=== PATIENT | female | born 1950 | race Caucasian/White ===

== ENCOUNTER 2018-10-20 05:46 | Inpatient (IN) | payer MEDICARE ==
[2018-10-20] VITALS (7 sets, daily range): BP systolic 114–145; BP diastolic 67–106
[~2018-10-20] VITALS: Ht 162.6 cm; Wt 59.0 kg
[2018-10-20] MEDS ORDERED: IV NORMAL SALINE 500ML 500 ML IV ONE (06:15)
[2018-10-20] MEDS ORDERED: ASPIRIN 81 MG TAB.CHEW PO ONE (06:15)
--- NOTE | 2018-10-20 06:58 | RAD ---
Indication:Palpitation. Hx heart condition, clavicle repair TECHNIQUE:Portable AP chest X-ray COMPARISON:None FINDINGS: Heart is normal in size. Lungs are hyperinflated. Diffuse linear opacities are seen in the right midlung zone and right lower lobe. Status post ORIF of left clavicular fracture. No pneumothorax or pleural effusion. IMPRESSION: Findings of COPD with superimposed atypical/viral infection not ruled out. Electronically signed by: Clifton Feng DO (10/20/2018 6:55 AM) [facility]
[2018-10-20 06:59] LABS: BASO # 0.1 x10^3/uL (0.0-0.2); BASO % 1 % (0-3); EOS % 0 % (0-3); HEMATOCRIT 38.2 % (36.0-47.0); HEMOGLOBIN 12.9 g/dL (12.0-15.5); LYMPH # 2.4 x10^3/uL (1.0-4.8); LYMPH % 22 % (24-48); MEAN CORPUSCULAR HEMOGLOBIN 31 pg (25-35); MEAN CORPUSCULAR HGB CONC 34 g/dL (31-37); MEAN CORPUSCULAR VOLUME 90 fL (79-100); MONO # 0.9 x10^3/uL (0.0-1.1); MONO % 8 % (0-9); NEUT # 7.6 x10^3uL (1.8-7.7); NEUT % 69 % (31-73); PLATELET COUNT 290 x10^3/uL (140-400); RED BLOOD COUNT 4.23 x10^6/uL (3.50-5.40); RED CELL DISTRIBUTION WIDTH 12.8 % (11.5-14.5)
[2018-10-20] MEDS ORDERED: dilTIAZem 25 MG/5 ML VIAL IVP ONE (07:15)
[2018-10-20 07:19] LABS: ALBUMIN 3.9 g/dL (3.4-5.0); ALBUMIN/GLOBULIN RATIO 1.1 (1.0-1.7); CALCIUM 9.3 mg/dL (8.5-10.1); CREATININE 0.7 mg/dL (0.6-1.0); GFR 82.7; MAGNESIUM 1.7 mg/dL (1.8-2.4); POTASSIUM 3.4 mmol/L (3.5-5.1); TOTAL BILIRUBIN 0.3 mg/dL (0.2-1.0); TOTAL PROTEIN 7.4 g/dL (6.4-8.2)
[2018-10-20 07:19] LABS: BILIRUBIN,URINE NEG (NEG); CLARITY,URINE CLEAR; COLOR,URINE STRAW; GLUCOSE,URINE NEG (NEG); NITRITE,URINE NEG (NEG); RBC,URINE RARE /HPF (0-2); UROBILINOGEN,URINE 0.2 mg/dL (0.2 mg/dL)
[2018-10-20 07:20] LABS: BACTERIA,URINE 0 /HPF (0-FEW); SQUAMOUS EPITHELIAL CELL,UR FEW /LPF
[2018-10-20 07:21] LABS: INFLUENZA A PATIENT NEGATIVE (NEGATIVE); INFLUENZA B PATIENT NEGATIVE (NEGATIVE)
[2018-10-20] MEDS ORDERED: cefTRIAXone SODIUM 1 GM VIAL ONE (07:40)
[2018-10-20] MEDS ORDERED: IV NORMAL SALINE 50ML 50 ML ONE (07:40)
--- NOTE | 2018-10-20 07:58 | PHYS DOC ---
Past History Past Medical History: A-Fib, Pneumonia, Stroke Past Surgical History: Appendectomy, Tonsillectomy, Other Alcohol Use: Rarely Drug Use: None Adult General Chief Complaint Chief Complaint: RAPID HEART RATE HPI HPI Patient is a 68 year old female with history of atrial fibrillation who presents with complaining of palpitation. Patient complaining of sudden onset of palpitations since 419 as a constant problem without chest pain. Patient complaining of shortness of breath and generalized weakness and denies focal neuro deficit, fever and chills, nausea and vomiting. Patient states she has problems with cough and cold for one month and recently treated with prednisone and inhaler and antibiotic by her primary care physician. Patient has history of atrial fibrillation without taking anticoagulation because of history of GI bleed. Review of Systems Review of Systems Constitutional: Denies fever or chills [] Eyes: Denies change in visual acuity, redness, or eye pain [] HENT: Denies nasal congestion or sore throat [] Respiratory: Reports cough and shortness of breath [] Cardiovascular: No additional information not addressed in HPI [] GI: Denies abdominal pain, nausea, vomiting, bloody stools or diarrhea [] : Denies dysuria or hematuria [] Musculoskeletal: Denies back pain or joint pain [] Integument: Denies rash or skin lesions [] Neurologic: Denies headache, focal weakness or sensory changes [] Endocrine: Denies polyuria or polydipsia [] All other systems were reviewed and found to be within normal limits, except as documented in this note. Current Medications Current Medications Current Medications Medications (Trade) Dose Ordered Sig/Latonya Start Time Stop Time Status Last Admin Dose Admin Aspirin (Children'S Aspirin) 324 mg 1X ONCE 10/20/18 06:15 10/20/18 06:58 DC 10/20/18 06:34 324 MG Ceftriaxone Sodium 1 gm/ Sodium Chloride 50 ml @ 100 mls/hr 1X ONCE 10/20/18 07:15 10/20/18 07:44 DC 10/20/18 07:42 100 MLS/HR Ceftriaxone Sodium (Rocephin) 1 gm STK-MED ONCE 10/20/18 07:40 10/20/18 07:41 DC Diltiazem HCl (Cardizem Iv Push) 10 mg 1X ONCE 10/20/18 07:15 10/20/18 07:16 DC 10/20/18 07:35 10 MG Sodium Chloride 50 ml @ As Directed STK-MED ONCE 10/20/18 07:40 10/20/18 07:41 DC Allergies Allergies Allergies Coded Allergies Type Severity Reaction Last Updated Verified iodine Allergy Unknown 10/20/18 Yes Physical Exam Physical Exam Constitutional: Well developed, well nourished, mild distress, non-toxic appearance. [] HENT: Normocephalic, atraumatic, oropharynx moist, no oral exudates, nose normal. [] Eyes: PERRLA, EOMI, conjunctiva normal, no discharge. [] Neck: Normal range of motion, no tenderness, supple, no stridor. [] Cardiovascular: Irregularly irregular rhythm with tachycardia, no murmur [] Lungs & Thorax: Bilateral breath sounds clear to auscultation [] Abdomen: Bowel sounds normal, soft, no tenderness, no masses, no pulsatile masses. [] Skin: Warm, dry, no erythema, no rash. [] Back: No tenderness, no CVA tenderness. [] Extremities: No tenderness, no cyanosis, no clubbing, ROM intact, no edema. [] Neurologic: Alert and oriented X 3, normal motor function, normal sensory function, no focal deficits noted. [] Psychologic: Affect normal, judgement normal, mood normal. [] Current Patient Data Vital Signs Vital Signs Date Time Temp Pulse Resp B/P (MAP) Pulse Ox O2 Delivery O2 Flow Rate FiO2 10/20/18 07:35 133 136/84 10/20/18 06:27 97.5 18 94 Room Air Lab Results Laboratory Tests Test 10/20/18 06:45 10/20/18 06:47 10/20/18 06:50 White Blood Count 11.0 x10^3/uL (4.0-11.0) Red Blood Count 4.23 x10^6/uL (3.50-5.40) Hemoglobin 12.9 g/dL (12.0-15.5) Hematocrit 38.2 % (36.0-47.0) Mean Corpuscular Volume 90 fL (79-100) Mean Corpuscular Hemoglobin 31 pg (25-35) Mean Corpuscular Hemoglobin Concent 34 g/dL (31-37) Red Cell Distribution Width 12.8 % (11.5-14.5) Platelet Count 290 x10^3/uL (140-400) Neutrophils (%) (Auto) 69 % (31-73) Lymphocytes (%) (Auto) 22 % (24-48) L Monocytes (%) (Auto) 8 % (0-9) Eosinophils (%) (Auto) 0 % (0-3) Basophils (%) (Auto) 1 % (0-3) Neutrophils # (Auto) 7.6 x10^3uL (1.8-7.7) Lymphocytes # (Auto) 2.4 x10^3/uL (1.0-4.8) Monocytes # (Auto) 0.9 x10^3/uL (0.0-1.1) Eosinophils # (Auto) 0.0 x10^3/uL (0.0-0.7) Basophils # (Auto) 0.1 x10^3/uL (0.0-0.2) Prothrombin Time 9.3 SEC (9.4-11.4) L Prothrombin Time INR 0.9 (0.9-1.1) PTT 22 SEC (23-33) L D-Dimer (Eliza) 1.04 mg/L (0.00-0.50) H Sodium Level 143 mmol/L (136-145) Potassium Level 3.4 mmol/L (3.5-5.1) L Chloride Level 104 mmol/L (98-107) Carbon Dioxide Level 27 mmol/L (21-32) Anion Gap 12 (6-14) Blood Urea Nitrogen 20 mg/dL (7-20) Creatinine 0.7 mg/dL (0.6-1.0) Estimated GFR (Cockcroft-Gault) 82.7 BUN/Creatinine Ratio 29 (6-20) H Glucose Level 113 mg/dL (70-99) H Calcium Level 9.3 mg/dL (8.5-10.1) Magnesium Level 1.7 mg/dL (1.8-2.4) L Total Bilirubin 0.3 mg/dL (0.2-1.0) Aspartate Amino Transferase (AST) 12 U/L (15-37) L Alanine Aminotransferase (ALT) 11 U/L (14-59) L Alkaline Phosphatase 55 U/L (46-116) Creatine Kinase 65 U/L (26-192) Troponin I Quantitative < 0.017 ng/mL (0-0.055) YS-Pui-N-Type Natriuretic Peptide 2650 pg/mL (0-124) H Total Protein 7.4 g/dL (6.4-8.2) Albumin 3.9 g/dL (3.4-5.0) Albumin/Globulin Ratio 1.1 (1.0-1.7) Lipase 161 U/L (73-393) Influenza Type A (Rapid) Negative (NEGATIVE) Influenza Type B (Rapid) Negative (NEGATIVE) Urine Collection Type Unknown Urine Color Straw Urine Clarity Clear Urine pH 7.0 Urine Specific Haskell 1.010 Urine Protein Neg (NEG-TRACE) Urine Glucose (UA) Neg mg/dL (NEG) Urine Ketones (Stick) Neg mg/dL (NEG) Urine Blood Neg (NEG) Urine Nitrite Neg (NEG) Urine Bilirubin Neg (NEG) Urine Urobilinogen Dipstick 0.2 mg/dL (0.2 mg/dL) Urine Leukocyte Esterase Neg (NEG) Urine RBC Rare /HPF (0-2) Urine WBC 1-4 /HPF (0-4) Urine Squamous Epithelial Cells Few /LPF Urine Bacteria 0 /HPF (0-FEW) EKG EKG EKG interpreted by me. EKG at 0601 showed atrial fibrillation with heart rate of 134, poor R-wave progress in anteroseptal leads, no acute ST and T-wave abnormalities. Radiology/Procedures Radiology/[place] [address] IMAGING REPORT Signed PATIENT: RONY BENDER ACCOUNT: [id number] : 1950 LOCATION: ER AGE: 68 SEX: F EXAM STATUS: PRE ER ORD. PHYSICIAN: TERRY MOSCOSO MD REASON: palpitation PROCEDURE: CHEST AP ONLY Indication:Palpitation. Hx heart condition, clavicle repair TECHNIQUE:Portable AP chest X-ray COMPARISON:None FINDINGS: Heart is normal in size. Lungs are hyperinflated. Diffuse linear opacities are seen in the right midlung zone and right lower lobe. Status post ORIF of left clavicular fracture. No pneumothorax or pleural effusion. IMPRESSION: Findings of COPD with superimposed atypical/viral infection not ruled out. Electronically signed by: Clifton Feng DO (10/20/2018 6:55 AM) [facility] DICTATED AND SIGNED BY: CLIFTON FENG DO DATE: 10/20/18 0655 CC: TERRY MOSCOSO MD ~ Course & Med Decision Making Course & Med Decision Making Pertinent Labs and Imaging studies reviewed. (See chart for details) Evaluation of patient in ER showed 68-year-old female patient with history of atrial fibrillation presented with palpitation. Patient had heart rate of 130s and treated with IV fluid and Cardizem with improving of the heart rate 100. Patient also had infiltration in chest x-ray and antibiotic was started. Dr. Villa accepted admission and informed about mild elevation of d-dimer is 3 of allergic to iodine and possible need for VQ scan. Dragon Disclaimer Dragon Disclaimer This electronic medical record was generated, in whole or in part, using a voice recognition dictation system. Departure Departure: Impression: Primary Impression: Atrial fibrillation with RVR Additional Impressions: CAP (community acquired pneumonia) Hypokalemia CHF (congestive heart failure) Elevated d-dimer Disposition: ADMITTED INPATIENT (At 0756) Admitting Physician: Andreea Villa (Accepted admission at 0755) Condition: IMPROVED Problem Qualifiers Additional Impressions: CAP (community acquired pneumonia) Laterality: right Lung location: middle lobe of lung Qualified Codes: J18.1 - Lobar pneumonia, unspecified organism CHF (congestive heart failure) Heart failure type: unspecified Heart failure chronicity: unspecified Qualified Codes: I50.9 - Heart failure, unspecified TERRY MOSCOSO MD Oct 20, 2018 07:58
[2018-10-20] MEDS ORDERED: dilTIAZem VIAL 125 MG in IV DEXTROSE 5% 100 ML IV PRN (09:15)
[2018-10-20] MEDS ORDERED: ATEN100T PO (09:49)
[2018-10-20] MEDS ORDERED: TURM538C PO (09:49)
[2018-10-20] MEDS ORDERED: VIT1CAPS7 PO (09:49)
[2018-10-20] MEDS ORDERED: PRED15SO24 PO (09:49)
[2018-10-20] MEDS ORDERED: ALEN70TA6 PO (09:49)
[2018-10-20] MEDS ORDERED: CHOL500016 PO (09:49)
[2018-10-20] MEDS ORDERED: DOXY100C2 PO (09:49)
[2018-10-20] MEDS ORDERED: PANT40TA3 PO (09:49)
[2018-10-20] MEDS ORDERED: FLUT100D IH (09:49)
[2018-10-20] MEDS: IV NORMAL SALINE 1,000ML 1,000 ML IV SCH ×2 (10:12→22:19)
[2018-10-20] MEDS: POTASSIUM CHLORIDE 20 MEQ TABLET.ER. PO SCH ×2 (10:37→20:38)
[2018-10-20] MEDS: MAGNESIUM OXIDE 400 MG TABLET PO SCH ×2 (10:37→20:38)
[2018-10-20] MEDS ORDERED: AZITHROMYCIN 250 MG TABLET. PO ONE (12:30)
--- NOTE | 2018-10-20 13:00 | HP ---
ADMIT DATE: 10/20/2018 HISTORY OF PRESENT ILLNESS: The patient is a 68-year-old female patient, who came to the Emergency Room complaining of palpitation that started suddenly at around 4:30 this morning. She denied any chest pain and the patient did complain of shortness of breath, generalized weakness and denies any focal neurological deficit, fever, chills, nausea and vomiting. She states had problem with cough and cold for 1 month and recently treated with prednisone and inhaler and antibiotics by her primary care physician. The patient has a history of atrial fibrillation without taking anticoagulation because of history of GI bleed. She was evaluated in the Emergency Room. Her EKG showed that she was in atrial fibrillation with a heart rate of 134 with poor R-wave progression in anteroseptal leads, but no acute ST-T changes. Her chest x-ray showed findings of COPD with atypical viral infection that cannot be ruled out and she was admitted. Her D-dimer was elevated; however, she is allergic to the iodine and she was admitted to the ICU to consult the cardiology team to assist with management of her atrial fibrillation. She apparently was seen by Dr. Sarah last Sunday it is about 4 days ago for similar problem and she has monitor for 2 weeks that was placed last Sunday. According to her, she saw her primary care physician, who started her on an inhaler. Nebulized treatment turned out to be budesonide or Pulmicort and when she used it that is when she started having this problem with the palpitation. She apparently had episode of atrial fibrillation before, treated with Cardizem when she was at [facility], but she has not been taking it after that. PAST MEDICAL HISTORY: Significant for atrial fibrillation diagnosed in 2017. 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 She has chronic obstructive pulmonary disease, multiple episodes pneumothorax. One of them required pleurodesis. The other two treated with chest tube for the lung to expand. 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 She has osteoarthritis, degenerative disk disease and cervical spinal stenosis. PAST SURGICAL HISTORY: Significant for bilateral cataract extraction, clavicular fracture, status post open reduction and internal fixation, cervical spine stenosis, status post cervical spine surgery. She has ablation of her WPW, esophagogastroduodenoscopy and colonoscopy. She has what seems to be angiography and arterial coil embolization of her probably gastroduodenal ulcer artery. She has history of appendectomy, history of pleurodesis, and multiple chest tube placement. FAMILY HISTORY: She has one brother older and has leukemia and coronary artery disease. One sister younger and still alive and has coronary artery disease. Her father at the age of 72 because of massive myocardial infarction. Mother at the age of 81 because of dementia. SOCIAL HISTORY: She is . She has one daughter. She actually currently lives with her daughter and son-in-law. She smoked 2 packs a day for 50 years. She quit smoking in 01/2018. Does not drink alcohol. She worked at [employer] for 29 years and at [employer] for about 6 years. She is retired. REVIEW OF SYSTEMS: The patient denied any blurring of vision. She has bilateral cataract extraction and possibly has what seemed to be homonymous hemianopia, retinal artery occlusion. She denied any glaucoma or macular degeneration. Denied any earache, tinnitus or sensorineural deafness. Denied any nosebleeds, stuffy nose or postnasal drip. Denied any sore throat, sore tongue, toothache, hoarseness of voice or difficulty swallowing. She denied any nausea, vomiting, diarrhea or constipation. Denied any hematemesis, melena or hematochezia. Denied any dysuria, frequency or hematuria. She does complain of what seemed to be vaginal spotting. She denied any chest pain. Did complain of shortness of breath and marked awareness of throbbing in her heart. Denied any orthopnea or paroxysmal nocturnal dyspnea. She does have cough with clear sputum according to her. Denied any chills, rigors or fever. Denied any dizziness, lightheadedness, or vertigo. PHYSICAL EXAMINATION: GENERAL: On arrival to the Emergency Room, she looked well and was clearly in no apparent respiratory distress, pale, but no jaundice, cyanosis, or thyromegaly. No jugular venous distention. No limb edema. VITAL SIGNS: Her heart rate was 133, blood pressure was 133/60, temperature was 97.5, respiratory rate was 18 and oxygen saturation was 94%. HEAD, EYES, EARS, NOSE, AND THROAT: Showed normocephalic, atraumatic. NECK: Supple. HEART: Showed sinus tachycardia; however, no gallop, rub or murmur. CHEST: Shows central trachea, equally reduced expansion, reduced air entry, vesicular sounds. I could not really appreciate any crepitation or rhonchi. ABDOMEN: Slightly distended, soft, nontender. No guarding or rigidity. No organomegaly. All hernial orifice intact. Bowel sounds normal. NEUROLOGIC: She is awake, alert, responding appropriately. All cranial nerves intact. EXTREMITIES: She moves extremities without difficulty. According to her she ambulates without assistance or assistive devices. LABORATORY DATA: At the Emergency Room showed a serum sodium 143, potassium 3.4, chloride 104, bicarbonate 27, anion gap of 12, BUN 20, creatinine 0.7. Her estimated GFR was 83 mL per minute. Her glucose was 113, lactic acid is only 1.8, calcium was 9.3, magnesium was 1.7. Total bilirubin 0.3. AST, ALT, alkaline phosphatase were normal. Her first set of cardiac enzymes show troponin to be less than 0.017. Her beta natriuretic peptide was 2650. Total protein was 7.4, albumin was 3.9. Lipase was 161. TSH was 0.801. Her prothrombin time was 9.3, INR of 0.9, aPTT was 22 and D-dimer was 1.04. Urinalysis was essentially unremarkable. The urine was straw colored, clear with a pH of 7, specific gravity of 1.010. The urine was negative for protein, glucose, ketones, blood, nitrite and leukocyte esterase, rare rbc's, 1-4 wbc's, and no bacteria. Her influenza A and B were negative. Her chest x-ray showed the heart is normal in size. Lungs are hyperinflated. Diffuse linear opacities are seen in the right mid lung zone and right lower lobe, status post open reduction and internal fixation of the left clavicular fracture, no pneumothorax or pleural effusion. IMPRESSION: The patient has findings consistent with COPD with superimposed atypical/viral infection that cannot be ruled out. The patient was admitted with diagnosis of palpitations, likely due to atrial fibrillation versus sinus tachycardia. She has community-acquired pneumonia and hypokalemia, elevated D-dimer. Unfortunately, the patient is allergic to IODINE. PLAN: My plan is to basically consult the cardiology team. I will continue with IV antibiotic for community-acquired pneumonia. We will replenish her potassium and arrange for her to have V/Q scan as well as venous Doppler ultrasound of both lower extremities. We will do 2 more sets of cardiac enzyme to rule out myocardial infarction. Her EKG according to description by the ER physician is consistent with atrial fibrillation, although looking at the monitor she seemed to have P waves with prolonged AL interval. SHERIDAN DUONG MD DR: RYAN/swati JOB#: [id number] / [id number]
--- NOTE | 2018-10-20 13:03 | RAD ---
Bilateral lower extremity venous Doppler HISTORY: Elevated d-dimer, palpitation Duplex ultrasound was used to evaluate the veins of the both lower extremities. Real-time imaging with compression, color flow imaging and Doppler were utilized for evaluation. The common femoral, femoral and popliteal veins are compressible in both lower extremities. There is normal antegrade flow with Doppler. There is normal flow with color imaging. There is flow in the greater saphenous veins with color imaging. There is flow in the calf veins with color imaging bilaterally. IMPRESSION: 1. Bilateral lower extremity venous Doppler negative for acute deep venous thrombosis. Electronically signed by: Pelon Gutierrez MD (10/20/2018 1:00 PM) [facility]
--- NOTE | 2018-10-20 15:26 | RAD ---
Ventilation/perfusion lung scan. HISTORY: Elevated d-dimer, short of breath, COPD Ventilation studies were done using 11.1 mCi xenon-133. There is a defect on the inspiration image on the anterior view which fills in on later images suggesting COPD. Perfusion images were done using 5.5 mCi technetium 99m MAA injected intravenously. There is a right upper lobe perfusion defect which is similar or possibly larger than the ventilation defect. There is no other segmental perfusion defect. There are changes of from emphysema on the chest x-ray in the right upper lobe. IMPRESSION: 1. Ventilation perfusion defect right upper lobe. 2. Indeterminate for a pulmonary embolus. 3. COPD. Electronically signed by: Pelon Gutierrez MD (10/20/2018 3:23 PM) [facility]
[2018-10-20] MEDS ORDERED: DIGOXIN IV 500 MCG/2 ML AMPUL. IV ONE (18:00)
--- NOTE | 2018-10-20 18:43 | CONS ---
DATE OF CONSULTATION: 10/20/2018 REASON FOR CONSULTATION: Atrial fibrillation. HISTORY OF PRESENT ILLNESS: A 68-year-old woman with past medical history as noted below, presenting to the hospital with palpitations. Noted to be in atrial flutter, admitted for further evaluation and treatment. In speaking with the patient, she reports that this occurred approximately a year ago, in [place], and has not had any recurrence since then. She has otherwise has been doing well at home. She is mostly limited due to her history of COPD. She does also have a longstanding history of GI bleeding and most recent episode of bleeding was in January 2018, where she received a transfusion. She also underwent a stenting of the superior mesenteric artery at that time, through Interventional Radiology. Since admission to the hospital, she has been on diltiazem drip, without any significant changes to her heart rate. PAST MEDICAL HISTORY: 1. COPD. 2. Peripheral arterial disease, status post SMA stent. 3. History of atrial fibrillation and WPW. 4. History of multiple pneumothoraces, status post pleurodesis. PAST SURGICAL HISTORY: Including cataract and EGD/colonoscopy. She has a history of appendectomy. FAMILY HISTORY: Noncontributory. SOCIAL HISTORY: She is , has 1 daughter. She lives currently with her daughter and son-in-law. She used to be a smoker and quit in 2018, but did smoke for 50-pack years prior to that. REVIEW OF SYSTEMS: Negative for 10 out of 14 systems reviewed, unless otherwise mentioned above in HPI. PHYSICAL EXAMINATION: VITAL SIGNS: Afebrile, heart rate 140, blood pressure 136/84, and 98% on room air. GENERAL: She is alert and oriented, in no acute distress. HEAD AND NECK: Unremarkable. CARDIAC: Irregularly irregular, without any obvious murmurs, rubs, or gallops. LUNGS: With decreased breath sounds bilaterally with a barrel-shaped chest. ABDOMEN: Soft, nontender. EXTREMITIES: No clubbing, cyanosis, or edema; 2+ radial pulses. NEUROLOGIC: No focal deficits. MUSCULOSKELETAL: No trauma. DIAGNOSTIC STUDIES: Including laboratory evaluation reveals an elevated D-dimer of 1.04, with a normal creatinine and negative cardiac enzymes, and a hemoglobin of 12.9 with a platelet count of 290. Pulmonary perfusion imaging does not reveal any significant PEs. Her lower extremity duplex ultrasound is otherwise negative. She is currently also wearing an event monitor, and an echocardiogram and stress test are currently pending. IMPRESSION: 1. Recurrent atrial fibrillation, currently atrial flutter by telemetry and EKG. 2. Peripheral arterial disease, status post superior mesenteric artery stent. 3. History of gastrointestinal bleeding. RECOMMENDATIONS: I had a long discussion with the patient and her family, regarding her risk of stroke and current pathophysiology. She understands and will start anticoagulation in preparation for possible transesophageal echocardiogram/cardioversion in the next 24 hours. If she is still in atrial fibrillation tomorrow morning, after treatment with digoxin, we will plan for transfer for a transesophageal echocardiogram guided cardioversion and possible esophagogastroduodenoscopy/colonoscopy to rule out any significant bleeding ulcers. Thank you for this consultation. TAHIR NAGY MD DR: LONNIE/swati JOB#: [id number] / [id number]
[2018-10-20] MEDS: BUDESONIDE 0.5 MG/2 ML NEBU NEB SCH (20:38)
[2018-10-20] MEDS: APIXABAN 5 MG TABLET. PO SCH (20:38)
[2018-10-20] MEDS ORDERED: FLUTICASONE PROPIONATE IH SCH (21:00)
--- NOTE | 2018-10-20 21:28 | EKG ---
[address] [address] Test Date: 2018-10-20 Test Time: 06:01:24 Pat Name[facility] Department: Room: [facility] 1 Gender: F [employer] Member: : 1950 Requested By: TERRY MOSCOSO Order Number: [id number] Reading MD: Galen Deutsch MD Measurements Intervals [place] Rate: 134 P: 90 MD: 82 QRS: 51 QRSD: 98 T: 75 QT: 334 QTc: 506 Interpretive Statements PROBABLE ATRIAL FLUTTER NON-SPECIFIC ST/T CHANGES Electronically Signed On 10-29-2018 22:13:56 CDT by Galen Deutsch MD
[2018-10-21] VITALS (9 sets, daily range): BP systolic 101–134; BP diastolic 56–67
[2018-10-21] MEDS ORDERED: PANTOPRAZOLE 40 MG TABLET. PO SCH (07:30)
--- NOTE | 2018-10-21 08:39 | PDOC ---
PROGRESS NOTES Diagnosis Problem Problems Medical Problems: (1) Atrial fibrillation with RVR Status: Acute (2) CAP (community acquired pneumonia) Status: Acute (3) CHF (congestive heart failure) Status: Acute (4) Elevated d-dimer Status: Acute (5) Hypokalemia Status: Acute (6) Tachycardia Status: Acute Assessment Problems Medical Problems: (1) Atrial fibrillation with RVR Status: Acute (2) CAP (community acquired pneumonia) Status: Acute (3) CHF (congestive heart failure) Status: Acute (4) Elevated d-dimer Status: Acute (5) Hypokalemia Status: Acute (6) Tachycardia Status: Acute 1. atrial fibrillation - currently sinus rhythm. start oral cardizem and continue eliquis for stroke prophylaxis. R/B/A discussed with patient yesterday. No new questions. Will start Multaq to maintain sinus rhythm. Continue MoMe monitoring and schedule office follow up when finished. Echo and stress testing as scheduled. 2. intermediate probability VQ- per PCP 3. COPD - per PCP, suggest follow up with Dr Finch outpatient. 4. history of GIB - monitor closely for any signs of bleeding, check CBC in 1 week, schedule follow up with Dr Lynch for GI evaluation. Discussed with Primary farmworker general. Subjective "ready to go home" no chest pain, no palpitations, no lightheadedness Objective Vital Signs Date Time Temp Pulse Resp B/P (MAP) Pulse Ox O2 Delivery O2 Flow Rate FiO2 10/21/18 06:45 97.4 85 20 128/65 (86) 98 Room Air Intake and Output 10/21/18 06:59 Intake Total 1920 ml Balance 1920 ml Intake Oral 370 ml IV Total 1550 ml # Voids 5 # Bowel Movements 1 Abdomen: Normal bowel sounds, Soft, No tenderness Heart: Normal S1, Normal S2, Other (no gallops, clicks or rubs) Extremities: No cyanosis, No edema, Normal pulses General: Alert, Oriented X3, Cooperative, No acute distress Lungs: Other (coarse, no crackles, rhonchi or wheezing) Neuro: Normal speech, Strength at 5/5 X4 ext Psych/Mental Status: Mental status NL, Mood NL Review of Relevant I have reviewed the following items sarika (where applicable) has been applied. Labs Laboratory Tests Test 10/20/18 06:45 10/20/18 06:47 10/20/18 06:50 10/20/18 07:18 White Blood Count 11.0 x10^3/uL (4.0-11.0) Red Blood Count 4.23 x10^6/uL (3.50-5.40) Hemoglobin 12.9 g/dL (12.0-15.5) Hematocrit 38.2 % (36.0-47.0) Mean Corpuscular Volume 90 fL (79-100) Mean Corpuscular Hemoglobin 31 pg (25-35) Mean Corpuscular Hemoglobin Concent 34 g/dL (31-37) Red Cell Distribution Width 12.8 % (11.5-14.5) Platelet Count 290 x10^3/uL (140-400) Neutrophils (%) (Auto) 69 % (31-73) Lymphocytes (%) (Auto) 22 % (24-48) Monocytes (%) (Auto) 8 % (0-9) Eosinophils (%) (Auto) 0 % (0-3) Basophils (%) (Auto) 1 % (0-3) Neutrophils # (Auto) 7.6 x10^3uL (1.8-7.7) Lymphocytes # (Auto) 2.4 x10^3/uL (1.0-4.8) Monocytes # (Auto) 0.9 x10^3/uL (0.0-1.1) Eosinophils # (Auto) 0.0 x10^3/uL (0.0-0.7) Basophils # (Auto) 0.1 x10^3/uL (0.0-0.2) Prothrombin Time 9.3 SEC (9.4-11.4) Prothromb Time International Ratio 0.9 (0.9-1.1) Activated Partial Thromboplast Time 22 SEC (23-33) D-Dimer (Eliza) 1.04 mg/L (0.00-0.50) Sodium Level 143 mmol/L (136-145) Potassium Level 3.4 mmol/L (3.5-5.1) Chloride Level 104 mmol/L (98-107) Carbon Dioxide Level 27 mmol/L (21-32) Anion Gap 12 (6-14) Blood Urea Nitrogen 20 mg/dL (7-20) Creatinine 0.7 mg/dL (0.6-1.0) Estimated GFR (Cockcroft-Gault) 82.7 BUN/Creatinine Ratio 29 (6-20) Glucose Level 113 mg/dL (70-99) Calcium Level 9.3 mg/dL (8.5-10.1) Magnesium Level 1.7 mg/dL (1.8-2.4) Total Bilirubin 0.3 mg/dL (0.2-1.0) Aspartate Amino Transf (AST/SGOT) 12 U/L (15-37) Alanine Aminotransferase (ALT/SGPT) 11 U/L (14-59) Alkaline Phosphatase 55 U/L (46-116) Creatine Kinase 65 U/L (26-192) Troponin I Quantitative < 0.017 ng/mL (0-0.055) XR-Dls-G-Type Natriuretic Peptide 2650 pg/mL (0-124) Total Protein 7.4 g/dL (6.4-8.2) Albumin 3.9 g/dL (3.4-5.0) Albumin/Globulin Ratio 1.1 (1.0-1.7) Lipase 161 U/L (73-393) Thyroid Stimulating Hormone (TSH) 0.801 uIU/mL (0.358-3.740) Influenza Type A (Rapid) Negative (NEGATIVE) Influenza Type B (Rapid) Negative (NEGATIVE) Urine Collection Type Unknown Urine Color Straw Urine Clarity Clear Urine pH 7.0 Urine Specific [place] 1.010 Urine Protein Neg (NEG-TRACE) Urine Glucose (UA) Neg mg/dL (NEG) Urine Ketones (Stick) Neg mg/dL (NEG) Urine Blood Neg (NEG) Urine Nitrite Neg (NEG) Urine Bilirubin Neg (NEG) Urine Urobilinogen Dipstick 0.2 mg/dL (0.2 mg/dL) Urine Leukocyte Esterase Neg (NEG) Urine RBC Rare /HPF (0-2) Urine WBC 1-4 /HPF (0-4) Urine Squamous Epithelial Cells Few /LPF Urine Bacteria 0 /HPF (0-FEW) Lactic Acid Level 1.8 mmol/L (0.4-2.0) Microbiology 10/20/18 Blood Culture - Preliminary, Resulted NO GROWTH AFTER 1 DAY... Medications Current Medications Aspirin (Children'S Aspirin) 324 mg 1X ONCE PO Last administered on 10/20/18at 06:34; Start 10/20/18 at 06:15; Stop 10/20/18 at 06:58; Status DC Sodium Chloride 500 ml @ 0 mls/hr 1X ONCE IV Last administered on 10/20/18at 06 :35; Start 10/20/18 at 06:15; Stop 10/20/18 at 06:58; Status DC Ceftriaxone Sodium 1 gm/ Sodium Chloride 50 ml @ 100 mls/hr 1X ONCE IV Last administered on 10/20/18at 07:42; Start 10/20/18 at 07:15; Stop 10/20/18 at 07:44 ; Status DC Diltiazem HCl (Cardizem Iv Push) 10 mg 1X ONCE IVP Last administered on at 07:35; Start 10/20/18 at 07:15; Stop 10/20/18 at 07:16; Status DC Sodium Chloride 50 ml @ As Directed STK-MED ONCE .ROUTE ; Start 10/20/18 at 07: 40; Stop 10/20/18 at 07:41; Status DC Ceftriaxone Sodium (Rocephin) 1 gm STK-MED ONCE .ROUTE ; Start 10/20/18 at 07:40 ; Stop 10/20/18 at 07:41; Status DC Diltiazem HCl 125 mg/Dextrose 125 ml @ 5 mls/hr CONT PRN IV SEE I/O RECORD Last administered on 10/20/18at 17:11; Start 10/20/18 at 09:15 Potassium Chloride (Klor-Con) 40 meq BID PO Last administered on 10/20/18at 20: 38; Start 10/20/18 at 10:15 Magnesium Oxide (Magnesium Oxide) 400 mg BID PO Last administered on 10/20/18at 20:38; Start 10/20/18 at 10:15; Stop 10/21/18 at 21:01 Sodium Chloride 1,000 ml @ 100 mls/hr Q10H IV Last administered on 10/20/18at 22:19; Start 10/20/18 at 10:15 Ceftriaxone Sodium 1 gm/ Sodium Chloride 50 ml @ 100 mls/hr Q24H IV ; Start 07/01 at 08:00 Azithromycin (Zithromax) 500 mg 1X ONCE PO Last administered on 10/20/18at 12: 52; Start 10/20/18 at 12:30; Stop 10/20/18 at 12:31; Status DC Azithromycin (Zithromax) 250 mg DAILY PO ; Start 10/21/18 at 09:00 Alendronate Sodium (Fosamax) 70 mg WEEKLY PO ; Start 10/27/18 at 09:00 Atenolol (Tenormin) 50 mg DAILY PO ; Start 10/21/18 at 09:00 Vitamin D (Vitamin D3) 5,000 unit DAILY PO ; Start 10/21/18 at 09:00 Non-Formulary Medication (Fluticasone Propionate (Flovent 100MCG Diskus)) 250 mcg BID IH ; Start 10/20/18 at 21:00; Stop 10/20/18 at 21:00; Status DC Pantoprazole Sodium (Protonix) 40 mg DAILYAC PO ; Start 10/21/18 at 07:30 Prednisolone Sodium Phosphate (Orapred Oral Soln) 20 mg DAILY PO ; Start at 09:00 Non-Formulary Medication (Vit C/Esparza & Celery Ex/Grp E (Tart Esparza Capsule)) 1 each DAILY PO ; Start 10/21/18 at 09:00; Stop 10/21/18 at 09:00; Status DC Budesonide (Pulmicort) 0.5 mg RTBID NEB Last administered on 10/20/18at 20:38; Start 10/20/18 at 20:00 Apixaban (Eliquis) 5 mg BID PO Last administered on 10/20/18at 20:38; Start 05/31 at 21:00 Digoxin (Lanoxin) 500 mcg 1X ONCE IV Last administered on 10/20/18at 18:15; Start 10/20/18 at 18:00; Stop 10/20/18 at 18:07; Status DC Active Scripts Active Reported Vitamin D3 (Cholecalciferol (Vitamin D3)) 5,000 Unit Tablet 1 Tab PO DAILY Tart Esparza Capsule (Vit C/Esparza & Celery Ex/Grp E) 1 Each Capsule 1 Each PO DAILY Prednisolone 15 Mg/5 Ml Solution 20 Mg PO DAILY Alendronate Sodium 70 Mg Tablet 1 Tab PO WEEKLY Protonix (Pantoprazole Sodium) 40 Mg Tablet.dr 1 Tab PO DAILY Atenolol 100 Mg Tablet 50 Mg PO DAILY Doxycycline Hyclate 100 Mg Capsule 1 Cap PO BID Flovent 100MCG Diskus (Fluticasone Propionate) 100 Mcg Disk.w.dev 250 Mcg IH BID Turmeric (Turmeric Root Extract) 538 Mg Capsule 500 Mg PO DAILY Vitals/I & O Vital Sign - Last 24 Hours 10/20/18 10/20/18 10/20/18 10/20/18 09:53 15:41 18:15 19:00 Pulse 132 136 142 137 B/P (MAP) 132/68 (89) 114/68 (83) 145/106 (119) Pulse Ox 98 98 O2 Delivery Room Air Room Air 10/20/18 10/20/18 10/20/18 10/20/18 20:00 21:00 22:00 23:00 Pulse 136 132 94 132 B/P (MAP) 143/69 (93) 119/67 (84) 120/83 (95) 135/77 (96) Pulse Ox 98 98 98 98 O2 Delivery Room Air Room Air Room Air Room Air 10/21/18 10/21/18 10/21/18 10/21/18 00:00 01:00 02:00 03:00 Pulse 104 64 60 60 B/P (MAP) 101/62 (75) 113/58 (76) 120/56 (77) 117/59 (78) Pulse Ox 98 96 97 98 O2 Delivery Room Air Room Air Room Air Room Air 10/21/18 10/21/18 10/21/18 10/21/18 04:00 05:00 06:00 06:45 Temp 97.4 Pulse 58 61 58 85 Resp 20 B/P (MAP) 114/58 (76) 134/56 (82) 128/58 (81) 128/65 (86) Pulse Ox 98 99 99 98 O2 Delivery Room Air Room Air Room Air Room Air Intake and Output 10/20/18 10/20/18 10/21/18 14:59 22:59 06:59 Intake Total 670 ml 1000 ml 250 ml Balance 670 ml 1000 ml 250 ml BRYANNA AGUILAR APRN Oct 21, 2018 08:39
[2018-10-21] MEDS: APIXABAN 5 MG TABLET. PO SCH (08:43)
[2018-10-21] MEDS: POTASSIUM CHLORIDE 20 MEQ TABLET.ER. PO SCH (08:43)
[2018-10-21] MEDS: MAGNESIUM OXIDE 400 MG TABLET PO SCH (08:44)
[2018-10-21] MEDS: IV NORMAL SALINE 1,000ML 1,000 ML IV SCH (08:59)
[2018-10-21] MEDS ORDERED: ATENOLOL 50 MG TABLET PO SCH (09:00)
[2018-10-21] MEDS ORDERED: CHERRY PO SCH (09:00)
[2018-10-21] MEDS ORDERED: GRP E PO SCH (09:00)
[2018-10-21] MEDS ORDERED: prednisoLONE SOD PHOSPHATE 15 MG/5 ML SOLUTION PO SCH (09:00)
[2018-10-21] MEDS ORDERED: AZITHROMYCIN 250 MG TABLET. PO SCH (09:00)
[2018-10-21] MEDS ORDERED: CHOLECALCIFEROL (VITAMIN D3) 1,000 UNIT TABLET PO SCH (09:00)
[2018-10-21] MEDS ORDERED: VIT C PO SCH (09:00)
[2018-10-21] MEDS ORDERED: CELERY EX PO SCH (09:00)
[2018-10-21] MEDS ORDERED: LIDOCAINE (700MG/PATCH) PATCH. TD SCH (09:00)
[2018-10-21] MEDS: BUDESONIDE 0.5 MG/2 ML NEBU NEB SCH (09:58)
[2018-10-21] MEDS ORDERED: ACETAMINOPHEN 325 MG TABLET PO PRN (10:15)
[2018-10-21] MEDS ORDERED: DILT120C85 PO (13:15)
[2018-10-21] MEDS ORDERED: AZIT250T PO (13:15)
[2018-10-21] MEDS ORDERED: CEFP200T PO (13:15)
[2018-10-21] MEDS ORDERED: APIX5TAB3 PO (13:15)
[2018-10-21] MEDS ORDERED: DRON400T PO (13:15)
--- NOTE | 2018-10-21 13:44 | PN ---
DATE: 10/21/2018 SUBJECTIVE: The patient is resting slightly propped up in bed, no apparent distress. She was started on a Cardizem drip last night and she has converted back to sinus rhythm around 2:00 in the morning. She was also started on Eliquis and when I questioned her, she denied any complaints and said that she has denied any chest pain, no more palpitations, continued to have some cough. PHYSICAL EXAMINATION: GENERAL: When I examined her, she looked well and was clearly in no apparent respiratory distress. No pallor, jaundice, cyanosis, or thyromegaly. No jugular venous distension. No lower limb edema. VITAL SIGNS: Her heart rate was 58, blood pressure was 128/58, temperature was 98, respiratory rate was 20, and oxygen saturation was 98% on room air. HEAD, EYES, EARS, NOSE AND THROAT: Showed normocephalic, atraumatic. NECK: Supple. HEART: Showed normal first and second heart sounds. No gallop, rub or murmur. CHEST: Clear to auscultation. No crepitation or rhonchi. ABDOMEN: Slightly distended, soft, nontender. NEUROLOGIC: She is awake, alert, responding appropriately. All her cranial nerves intact. She moves extremities without difficulty. She ambulates without assistance or assistive devices. Her intake over the last 24 hours was 1920, no output was recorded. LABORATORY DATA: Her lab work this morning is still pending at the time of this dictation. She did have ventilation perfusion scan showed that there is a defect on inspiration images on the anterior view, which fills in on later images suggesting COPD. Perfusion images were done and showed the right upper lobe perfusion defect, which was similar or possibly larger than the ventilation defect. There were no other segmental perfusion defects. There were changes of emphysema on the chest x-ray on the right upper lobe. Impression is that the patient has ventilation perfusion defect, right upper lobe, indeterminate for pulmonary embolus and COPD. She has had Doppler ultrasound of both lower extremities showed that there is no evidence of deep vein thrombosis in either extremity. ASSESSMENT: So in summary, this is a 68-year-old female patient, who was admitted with recurrent atrial fibrillation and flutter. She has other medical problems to include peripheral arterial disease, status post superior mesenteric artery stent, history of atrial flutter, history of atrial fibrillation and WPW, treated with ablation about 35 years ago, chronic obstructive pulmonary disease, multiple pneumothoraces requiring pleurodesis. She has a history of gastrointestinal bleeding. The patient has converted to sinus rhythm. Student Ambassador was planning to transfer her to [facility] in case she does not convert for transesophageal echocardiogram and also consult the environmental services tech for possible esophagogastroduodenoscopy as well as colonoscopy. SHERIDAN DUONG MD DR: RYAN/swati JOB#: [id number] / [id number]
--- NOTE | 2018-10-21 14:06 | DS ---
DATE OF DISCHARGE: 10/21/2018 HOSPITAL COURSE: The patient is a 68-year-old female patient, who was admitted, complaint of shortness of breath and palpitation, was diagnosed with atrial flutter/fibrillation with rapid ventricular response. She was started on Cardizem drip and has converted to sinus rhythm and was switched to diltiazem 120 mg once a day. She was seen in consultation by the almond cutting machine tender who added also Multaq 400 mg twice a day as well as Eliquis. PHYSICAL EXAMINATION: GENERAL: When I saw her this morning, she looked well and was clearly in no apparent respiratory distress. No pallor, jaundice, cyanosis, or thyromegaly. No jugular venous distension. No limb edema. VITAL SIGNS: Her heart rate was 72, blood pressure 128/67, temperature was 98, respiratory rate was 18 and oxygen saturation was 98%. HEAD, EYES, EARS, NOSE AND THROAT: Normocephalic, atraumatic. NECK: Supple. HEART: Showed normal first and second heart sounds with no gallop, rub or murmur. CHEST: Clear to auscultation. No crepitation or rhonchi. ABDOMEN: Distended, soft, nontender. No guarding or rigidity. No organomegaly. All hernial orifice intact. Bowel sounds normal. NEUROLOGIC: She was awake, alert, responding appropriately. Extraocular movements intact. EXTREMITIES: She moves extremities without difficulty. She ambulates without assistance or assistive devices. Her intake was 1900 and no output was recorded. LABORATORY DATA: As of yesterday showed a white cell count of 11,000, hemoglobin 13, hematocrit 38, MCV 90 and platelet count 290,000. Serum sodium was 143, potassium 3.4, chloride 104, bicarbonate 27, anion gap of 12, BUN 20, creatinine 0.7, estimated GFR was 82 mL per minute. Her glucose 113, calcium was 9.3, magnesium was 1.7. Total bilirubin, AST, ALT, alkaline phosphatase were normal. Total protein was 7.4, albumin 3.9. Her TSH is normal at 0.01. DISCHARGE MEDICATIONS: The patient was discharged home to continue on apixaban 5 mg twice a day, azithromycin 250 mg once a day for 7 days, cefpodoxime proxetil 200 mg twice a day for 7 days, diltiazem hydrochloride 120 mg once a day and dronedarone for Multaq 400 mg twice a day. Should continue also on alendronate 70 mg once a week, atenolol 50 mg once a day, vitamin D3 5000 units once a day, Flovent Diskus 250 mcg twice a day, Protonix 40 mg once a day, prednisolone 15 mg per 5 mL, she takes 20 mg p.o. daily, multivitamin 1 tablet once a day. FINAL DISCHARGE DIAGNOSES: 1. Atrial flutter/fibrillation with rapid ventricular response. The patient has converted to sinus rhythm on Cardizem drip and will be discharged on atenolol, Cardizem, apixaban and Multaq. The patient has intermediate probability on V/Q scan; however, she is already on apixaban. If she bled, obviously she probably will need an inferior vena cava filter. 2. Chronic obstructive pulmonary disease for which she continues to be on steroids as well as inhalers, on antibiotic. 3. History of GI bleed. We will check her CBC in 1 week's time and she has an appointment to be seen by Dr. Lynch. SHERIDAN DUONG MD DR: RYAN/swati JOB#: [id number] / [id number]
[2018-10-21] MEDS ORDERED: DRONEDARONE HCL 400 MG TABLET PO SCH (17:00)
[2018-10-21] MEDS ORDERED: PATCH REMOVAL. MC SCH (21:00)
[2018-10-21] MEDS ORDERED: LACTOBACILLUS RHAMNOSUS GG 1 CAPSULE. PO SCH (21:00)
[2018-10-27] MEDS ORDERED: ALENDRONATE SODIUM 35 MG TABLET PO SCH (09:00)
== END 2018-10-21 14:25 | disposition home or self-care (01) | DRG 308 ==
LOC: ER 05:46 → ICU 08:37
PROVIDERS: ADMIT Internal Medicine; ATTEND Internal Medicine
DX: I48.91 Unspecified atrial fibrillation (principal); J18.9 Pneumonia, unspecified organism; J44.0 Chronic obstructive pulmonary disease with (acute) lower respiratory infection; R65.10 Systemic inflammatory response syndrome (SIRS) of non-infectious origin without acute organ dysfunction; I48.92 Unspecified atrial flutter; E87.6 Hypokalemia; I73.9 Peripheral vascular disease, unspecified; H54.7 Unspecified visual loss; I50.9 Heart failure, unspecified; M19.90 Unspecified osteoarthritis, unspecified site; Z80.6 Family history of leukemia; Z82.49 Family history of ischemic heart disease and other diseases of the circulatory system; Z86.73 Personal history of transient ischemic attack (TIA), and cerebral infarction without residual deficits; Z87.891 Personal history of nicotine dependence; Z90.49 Acquired absence of other specified parts of digestive tract; Z91.041 Radiographic dye allergy status; Z98.41 Cataract extraction status, right eye; Z98.42 Cataract extraction status, left eye
CPT/HCPCS: 36415; 71045; 78582; 80053; 81001; 82550; 83605; 83690; 83735; 83880; 84443; 84484; 85025; 85379; 85610; 85730; 87040; 87641; 87804; 93005; 93970; 94640; 96361; 96365; 96374; 96375; A9540; A9558; J0456; J0696; J1160; J3490; J7040; J7626; 99285-25; J7030; J7510

== ENCOUNTER → 2018-10-30 | Outpatient (CLI) | payer MEDICARE ==
[2018-10-21 10:00] VITALS: BP 128/67
[~2018-10-30] MED LIST: ALEN70TA6 PO; APIX5TAB3 PO; ATEN100T PO; AZIT250T PO; CEFP200T PO; CHOL500016 PO; DILT120C85 PO; DOXY100C2 PO; DRON400T PO; FLUT100D IH; OXYC1TAB15 PO; PANT40TA3 PO; PRED15SO24 PO; TURM538C PO; VIT1CAPS7 PO
[2018-10-30 13:03] LABS: BASO # 0.1 x10^3/uL (0.0-0.2); BASO % 1 % (0-3); EOS # 0.2 x10^3/uL (0.0-0.7); EOS % 2 % (0-3); HEMATOCRIT 39.8 % (36.0-47.0); HEMOGLOBIN 13.4 g/dL (12.0-15.5); LYMPH # 2.7 x10^3/uL (1.0-4.8); LYMPH % 24 % (24-48); MEAN CORPUSCULAR HEMOGLOBIN 30 pg (25-35); MEAN CORPUSCULAR HGB CONC 34 g/dL (31-37); MEAN CORPUSCULAR VOLUME 91 fL (79-100); MONO # 1.2 x10^3/uL (0.0-1.1); MONO % 10 % (0-9); NEUT # 7.5 x10^3uL (1.8-7.7); NEUT % 64 % (31-73); PLATELET COUNT 341 x10^3/uL (140-400); RED BLOOD COUNT 4.39 x10^6/uL (3.50-5.40); RED CELL DISTRIBUTION WIDTH 13.2 % (11.5-14.5); WHITE BLOOD COUNT 11.7 x10^3/uL (4.0-11.0)
== END | disposition home or self-care (01) ==
LOC: LAB 12:39
PROVIDERS: ATTEND Internal Medicine
DX: D64.9 Anemia, unspecified (principal)
CPT/HCPCS: 36415; 85025

== ENCOUNTER 2019-01-11 22:25 | Emergency (ER) | payer MEDICARE ==
[~2019-01-11 22:25] MED LIST changes: -OXYC1TAB15 PO
--- NOTE | 2019-01-11 22:29 | ED.ADGEN ---
Past History Past Medical History: A-Fib, Hypertension, Pneumonia, Stroke Past Surgical History: Appendectomy, Tonsillectomy, Other Alcohol Use: Rarely Drug Use: None Adult General Chief Complaint Chief Complaint ".. I kind tripped.. and fell backwards.. I tried to catch myself with out stretched arm.. and came down hard on my palms.. now both my wrists hurt...." HPI HPI Patient is a 68 year old female who presents with above hx and complaints of bilateral wrist pain after fall on outstretched arms. Patient localizes pain to wrist. There is pain with flexion and extension of wrists. . Pain is worse when weight is placed on palms.. Distal neurovascular intact. Flexion and extension of fingers is not painful. No upper arm tenderness. Denies other injuries. Patient does have a history of A. fib, hypertension, arthritis, and CVA. Patient normally follows with Dr. Cook. Review of Systems Review of Systems Constitutional: Denies fever or chills [] Eyes: Denies change in visual acuity, redness, or eye pain [] HENT: Denies nasal congestion or sore throat [] Respiratory: Denies cough or shortness of breath [] Cardiovascular: No additional information not addressed in HPI [] GI: Denies abdominal pain, nausea, vomiting, bloody stools or diarrhea [] : Denies dysuria or hematuria [] Musculoskeletal: Denies back pain or joint pain []except complaints of bilateral wrist pain Integument: Denies rash or skin lesions [] Neurologic: Denies headache, focal weakness or sensory changes [] Endocrine: Denies polyuria or polydipsia [] All other systems were reviewed and found to be within normal limits, except as documented in this note. Family History Family History Noncontributory Current Medications Current Medications Current Medications Medications (Trade) Dose Ordered Sig/Latonya Start Time Stop Time Status Last Admin Dose Admin Oxycodone/ Acetaminophen (Percocet 5/325) 1 tab STK-MED ONCE 01/11/19 23:33 01/11/19 23:44 DC Allergies Allergies Allergies Coded Allergies Type Severity Reaction Last Updated Verified iodine Allergy Intermediate 10/21/18 Yes Physical Exam Physical Exam Constitutional: Mild to moderate distress, non-toxic appearance. [] HENT: Normocephalic, atraumatic, bilateral external ears normal, oropharynx moist, no oral exudates, nose normal. [] Eyes: PERRLA, EOMI, conjunctiva normal, no discharge. [] Neck: Normal range of motion, no tenderness, supple, no stridor. [] Scar over her left clavicle-a surgical repair Cardiovascular:Heart rate regular rhythm, no murmur [], PMI slightly to the left Lungs & Thorax: Bilateral breath sounds equal apex with scattered wheezes on auscultation [] Abdomen: Bowel sounds normal, soft, no tenderness, no masses, no pulsatile masses. [] Skin: Warm, dry, no erythema, no rash. Poor turgor Back: No tenderness, no CVA tenderness. [] Extremities: No tenderness, no cyanosis, no clubbing, ROM intact, no edema. [] Except findings of bilateral wrists as per history of present illness. Arthritic findings. Neurologic: Alert and oriented X 3, normal motor function, normal sensory function, no focal deficits noted. [] Psychologic: Affect anxious, judgement normal, mood normal. [] Current Patient Data Vital Signs Vital Signs Date Time Temp Pulse Resp B/P (MAP) Pulse Ox O2 Delivery O2 Flow Rate FiO2 01/11/19 22:36 97.7 63 18 97 Room Air EKG EKG [] Radiology/Procedures Radiology/Procedures I interpretation x-ray of wrist show[] arthritic degenerative changes. Osteopenia. But no obvious displaced fracture. Course & Med Decision Making Course & Med Decision Making Pertinent Labs and Imaging studies reviewed. (See chart for details). Patient to wear wrist splints. Ice packs as needed. Take Tylenol ibuprofen for pain. Follow-up primary care. Consider repeat x-ray of wrist in 2 weeks. [] Final Impression Final Impression 1. Compression injuries to both wrist-sprain versus compression fracture[] Dragon Disclaimer Dragon Disclaimer This electronic medical record was generated, in whole or in part, using a voice recognition dictation system. Discharge Summary Visit Information Final Diagnosis Problems Medical Problems: (1) Wrist disorder Status: Acute Brief Hospital Course Allergies Allergies Coded Allergies Type Severity Reaction Last Updated Verified iodine Allergy Intermediate 10/21/18 Yes Vital Signs Vital Signs Date Time Temp Pulse Resp B/P (MAP) Pulse Ox O2 Delivery O2 Flow Rate FiO2 01/11/19 22:36 97.7 63 18 97 Room Air Brief Hospital Course Ms. Acevedo is a 68 old female who presented with bilateral wrist pain. Suspect compression injury vs sprain. Discharge Information Condition at Discharge: Improved, Stable Disposition/Orders: D/C to Home Dischare Medications Current Medications Oxycodone/ Acetaminophen (Percocet 5/325) 2 tab 1X ONCE PO Last administered on 01/11/19at 23:34; Admin Dose 2 TAB; Start 01/11/19 at 23:45; Stop 01/11/19 at 23:45; Status DC Oxycodone/ Acetaminophen (Percocet 5/325) 1 tab STK-MED ONCE .ROUTE ; Start 01/11/19 at 23:33; Stop 01/11/19 at 23:44; Status DC Active Scripts Active Percocet 5-325 Mg Tablet (Oxycodone Hcl/Acetaminophen) 1 Each Tablet 1 Tab PO PRN Q6HRS PRN Zithromax (Azithromycin) 250 Mg Tablet 250 Mg PO DAILY 7 Days Cefpodoxime Proxetil 200 Mg Tablet 1 Tab PO BID 7 Days Diltiazem 24HR Cd (Diltiazem Hcl) 120 Mg Cap.er.24h 1 Cap PO DAILY 30 Days Eliquis (Apixaban) 5 Mg Tablet 5 Mg PO BID 30 Days Multaq (Dronedarone Hcl) 400 Mg Tablet 1 Tab PO BID 30 Days Reported Vitamin D3 (Cholecalciferol (Vitamin D3)) 5,000 Unit Tablet 1 Tab PO DAILY Tart Esparza Capsule (Vit C/Esparza & Celery Ex/Grp E) 1 Each Capsule 1 Each PO DAILY Prednisolone 15 Mg/5 Ml Solution 20 Mg PO DAILY Alendronate Sodium 70 Mg Tablet 1 Tab PO WEEKLY Protonix (Pantoprazole Sodium) 40 Mg Tablet.dr 1 Tab PO DAILY Atenolol 100 Mg Tablet 50 Mg PO DAILY Flovent 100MCG Diskus (Fluticasone Propionate) 100 Mcg Disk.w.dev 250 Mcg IH BID Dragon Disclaimer This chart was dictated in whole or in part using Voice Recognition software in a busy, high-work load, and often noisy Emergency Department environment. It may contain unintended and wholly unrecognized errors or omissions. BRYAN FLORES MD Jan 11, 2019 22:29
[2019-01-11 22:36] VITALS: BP 166/71
[2019-01-11] MEDS ORDERED: oxyCODONE/APAP 5/325 1 TAB TABLET ONE (23:33)
[2019-01-11] MEDS ORDERED: OXYC1TAB15 PO (23:34)
[2019-01-11] MEDS ORDERED: oxyCODONE/APAP 5/325 1 TAB TABLET PO ONE (23:45)
--- NOTE | 2019-01-12 08:41 | RAD ---
Examination: 3 views of the bilateral wrists History: History of fall, pain Comparison: None available Findings The alignment of the carpal bones are grossly appears unremarkable. Mild degenerative changes identified in the carpal joints. There is a cystic structure identified in the distal aspect of the scaphoid on the right likely degenerative cyst. No obvious acute fracture is evident. Impression: No acute osseous findings
--- NOTE | 2019-01-12 08:57 | RAD ---
Examination: 3 views of the bilateral hands History history of fall, pain Comparison: None available Findings: The alignment of the metacarpophalangeal joints, interphalangeal joints grossly appears unremarkable. There is no obvious acute fracture identified. Impression: No acute osseous findings.
== END 2019-01-11 23:44 | disposition home or self-care (01) ==
LOC: ER 22:25
DX: M25.532 Pain in left wrist (principal); M25.531 Pain in right wrist; G89.11 Acute pain due to trauma; I48.91 Unspecified atrial fibrillation; I10 Essential (primary) hypertension; Z86.73 Personal history of transient ischemic attack (TIA), and cerebral infarction without residual deficits; Z88.8 Allergy status to other drugs, medicaments and biological substances; W01.0XXA Fall on same level from slipping, tripping and stumbling without subsequent striking against object, initial encounter; Y93.89 Activity, other specified; Y92.89 Other specified places as the place of occurrence of the external cause; Y99.8 Other external cause status
CPT/HCPCS: 29125; 73110; 73130; 99284-25

== ENCOUNTER 2020-04-03 11:48 | Emergency (ER) | payer MEDICARE ==
[~2020-04-03] VITALS: Ht 162.6 cm; Wt 63.5 kg
[~2020-04-03 11:48] MED LIST changes: -DILT120C85 PO; +DILT120C99 PO; +OXYC1TAB15 PO
[2020-04-03 12:42] LABS: CLARITY,URINE TURBID; COLOR,URINE ORANGE
[2020-04-03 12:43] LABS: BACTERIA,URINE MANY /HPF (0-FEW); WBC,URINE TNTC /HPF (0-4)
[2020-04-03 13:35] VITALS: BP 134/57
[2020-04-03] MEDS ORDERED: NITR100C62 PO (13:52)
--- NOTE | 2020-04-03 13:52 | PHYS DOC ---
Past History Past Medical History: A-Fib, Dementia, Hypertension, Pneumonia, Stroke Past Surgical History: Appendectomy, Tonsillectomy, Other Alcohol Use: Rarely Drug Use: None General Adult EDM: Chief Complaint: PAIN ON URINATION HPI: HPI: 69-year-old female presents with dysuria and increased frequency. The patient has had the symptoms on and off for almost a month. She was diagnosed with a UTI few weeks ago and took Keflex. She states that her symptoms did completely resolve for several days but have come back the last few days. She started taking Azo yesterday. She is taken 2 doses thus far. Patient denies fever or chills. She has no other complaints at this time. She has not had a resistant UTIs as far she knows. Review of Systems: Review of Systems: Constitutional: Denies fever or chills Eyes: Denies change in visual acuity HENT: Denies nasal congestion or sore throat Respiratory: Denies cough or shortness of breath Cardiovascular: Denies chest pain or edema GI: Denies abdominal pain, nausea, vomiting, bloody stools or diarrhea : Dysuria, increased urinary frequency. Musculoskeletal: Denies back pain or joint pain Integument: Denies rash Neurologic: Denies headache, focal weakness or sensory changes Endocrine: Denies polyuria or polydipsia Lymphatic: Denies swollen glands Psychiatric: Denies depression or anxiety Heart Score: Risk Factors: Risk Factors: DM, Current or recent (<one month) smoker, HTN, HLP, family history of CAD, obesity. Risk Scores: Score 0 - 3: 2.5% MACE over next 6 weeks - Discharge Home Score 4 - 6: 20.3% MACE over next 6 weeks - Admit for Clinical Observation Score 7 - 10: 72.7% MACE over next 6 weeks - Early Invasive Strategies Allergies: Allergies: Allergies Coded Allergies Type Severity Reaction Last Updated Verified iodine Allergy Intermediate 10/21/18 Yes Physical Exam: PE: Constitutional: Well developed, well nourished, no acute distress, non-toxic appearance. [] HENT: Normocephalic, atraumatic, bilateral external ears normal, oropharynx moist, no oral exudates, nose normal. [] Eyes: PERRLA, EOMI, conjunctiva normal, no discharge. [] Neck: Normal range of motion, no tenderness, supple, no stridor. [] Cardiovascular:Heart rate regular rhythm, no murmur [] Lungs & Thorax: Bilateral breath sounds clear to auscultation [] Abdomen: Bowel sounds normal, soft, no tenderness, no masses, no pulsatile masses. [] Skin: Warm, dry, no erythema, no rash. [] Back: No tenderness, no CVA tenderness. [] Extremities: No tenderness, no cyanosis, no clubbing, ROM intact, no edema. [] Neurologic: Alert and oriented X 3, normal motor function, normal sensory function, no focal deficits noted. [] Psychologic: Affect normal, judgement normal, mood normal. [] Current Patient Data: Labs: Laboratory Tests Test 04/03/20 12:20 Urine Collection Type Unknown Urine Color [place] Urine Clarity Turbid Urine pH Urine Specific [place] Urine Protein (NEG-TRACE) Urine Glucose (UA) mg/dL (NEG) Urine Ketones (Stick) mg/dL (NEG) Urine Blood (NEG) Urine Nitrite (NEG) Urine Bilirubin (NEG) Urine Urobilinogen Dipstick mg/dL (0.2 mg/dL) Urine Leukocyte Esterase (NEG) Urine RBC 1-2 /HPF (0-2) Urine WBC Tntc /HPF (0-4) Urine Squamous Epithelial Cells None /LPF Urine Bacteria Many /HPF (0-FEW) Vital Signs: Vital Signs Date Time Temp Pulse Resp B/P (MAP) Pulse Ox O2 Delivery O2 Flow Rate FiO2 04/03/20 11:48 97.9 62 16 133/54 (80) 97 Room Air EKG: EKG: [] Radiology/Procedures: Radiology/Procedures: [] Course & Med Decision Making: Course & Med Decision Making Pertinent Labs and Imaging studies reviewed. (See chart for details) The patient's urinalysis is inconclusive due to the Azo. She does have many white cells so I will presume urinary tract infection. I will treat her with Macrobid for 5 days. She is stable for discharge at this time. [] Dragon Disclaimer: Elysia Disclaimer: This electronic medical record was generated, in whole or in part, using a voice recognition dictation system. Departure Departure: Impression: Primary Impression: UTI (urinary tract infection) Disposition: 01 HOME/RESIDENCE PRIOR TO ADM Condition: STABLE Referrals: ANGY GUTIERRES MD (PCP) Patient Instructions: Urinary Tract Infection, Offc-kq-Axib Scripts Nitrofurantoin Monohyd/M-Cryst (MACROBID 100 MG CAPSULE) 100 Mg Capsule 1 CAP PO BID for UTI for 5 Days, #10 CAP 0 Refills Prov: JENNIFER MAY DO 04/03/20 Justification of Admission: Justification of Admission: Justification of Admission Dx: N/A JENNIFER MAY DO Apr 03, 2020 13:52
== END 2020-04-03 14:00 | disposition home or self-care (01) ==
LOC: ER 11:48
DX: N39.0 Urinary tract infection, site not specified (principal); I48.91 Unspecified atrial fibrillation; F03.90 Unspecified dementia, unspecified severity, without behavioral disturbance, psychotic disturbance, mood disturbance, and anxiety; I10 Essential (primary) hypertension; Z86.73 Personal history of transient ischemic attack (TIA), and cerebral infarction without residual deficits; Z90.49 Acquired absence of other specified parts of digestive tract; Z88.8 Allergy status to other drugs, medicaments and biological substances
CPT/HCPCS: 81001; 87086; 99283

== ENCOUNTER → 2021-02-01 | Outpatient (CLI) | payer MEDICARE ==
[~2021-02-01] MED LIST changes: -ALEN70TA6 PO; +ALEN70TA71 PO; -DRON400T PO; +DRON400T6 PO; -FLUT100D IH; +FLUT100D2 IH; +NITR100C62 PO
--- NOTE | 2021-02-01 12:33 | RAD ---
Bilateral lower extremity ABIs without comparison for bilateral lower extremity pain, history of smok ing, pain is worse on the left than the right. TECHNIQUE AND FINDINGS: Bilateral lower extremity ABIs is performed. The BRITTNI on the right is 0.8 and on the left 0.7. IMPRESSION: 1. Abnormal bilateral lower extremity ABIs. Electronically signed by: Ch[place] Tobias MD (02/01/2021 12:31 PM) [id number]
== END ==
LOC: US 09:01
PROVIDERS: ATTEND Family Medicine
DX: M79.604 Pain in right leg (principal); M79.605 Pain in left leg; Z87.891 Personal history of nicotine dependence
CPT/HCPCS: 93922

== ENCOUNTER → 2021-08-26 | Outpatient (CLI) | payer MEDICARE ==
[~2021-08-26] MED LIST changes: -DOXY100C2 PO; +DOXY100C3 PO
[2021-08-29 18:07] LABS: ALBUM 3.7 g/dL (2.9-4.4); ALPHA 1 0.3 g/dL (0.0-0.4); BETA 1.1 g/dL (0.7-1.3); GAMMA 1.1 g/dL (0.4-1.8); PROTEIN TOTAL 7.2 g/dL (6.0-8.5); SPEP AG RATIO 1.1 (0.7-1.7)
[2021-08-29 19:07] LABS: ANA INTERP Negative (.)
== END ==
LOC: LAB 08:54
PROVIDERS: ATTEND Psychiatry & Neurology Neurology with Special Qualifications in Child Neurology
DX: G62.89 Other specified polyneuropathies (principal); G25.81 Restless legs syndrome; R20.0 Anesthesia of skin; R53.1 Weakness; I50.9 Heart failure, unspecified
CPT/HCPCS: 36415; 82607; 82746; 82947; 83540; 83550; 84165; 84443; 85651; 86038